=== PATIENT | male | born 1995 | race Caucasian/White ===

== ENCOUNTER 2018-02-07 07:17 | Observation (INO) | payer OTHER ==
[~2018-02-07] VITALS: Ht 172.7 cm; Wt 99.8 kg
[2018-02-07 08:01] LABS: ABSOLUTE BASOPHIL COUNT 0 /CUMM (0.0-0.2); ABSOLUTE EOSINOPHIL COUNT 0.3 /CUMM (0.0-0.7); ABSOLUTE GRANULOCYTE CT 9.4 /CUMM (1.4-6.5); ABSOLUTE LYMPH COUNT 1.8 /CUMM (1.2-3.4); ABSOLUTE MONOCYTE COUNT 0.8 /CUMM (0.10-0.60); BASOPHIL % 0.2 % (0.0-2.0); EOSINOPHIL % 2.2 % (0-5); GRANULOCYTE % 76.7 % (42.2-75.2); MEAN CORPUSCULAR HGB 29.3 PG (27.0-31.0); MEAN CORPUSCULAR HGB CONC 33.6 G/DL (33.0-37.0); MEAN CORPUSCULAR VOLUME 87.2 FL (80.0-94.0); MEAN PLATELET VOLUME 8.4 FL (7.4-10.4); PLATELET COUNT 293 /CUMM (130-400); RBC DISTRIBUTION WIDTH 12.8 % (11.5-14.5); RED BLOOD CELL CT 6.14 /CUMM (4.70-6.10); WHITE BLOOD CELL COUNT 12.3 /CUMM (4.8-10.8)
[2018-02-07 08:10] LABS: HEMATOCRIT 53.5 % (42-52)
--- NOTE | 2018-02-07 08:34 | ED GI/GU/ABDOMINAL COMPLAINT ---
History of Present Illness General Chief Complaint: Abdominal Pain/Flank Pain Stated Complaint: ABD PAIN Source: patient Exam Limitations: no limitations Vital Signs & Intake/Output Vital Signs & Intake/Output Vital Signs Date Time Temp Pulse Resp B/P B/P Pulse O2 O2 Flow FiO2 Mean Ox Delivery Rate 02/07 1221 98.8 88 20 136/86 96 Room Air 02/07 1041 98.7 80 18 110/70 96 Room Air 02/07 0934 98.9 90 20 122/70 96 Room Air 02/07 0732 98.3 108 18 137/83 99 Room Air Allergies Coded Allergies: No Known Allergies (02/07/18) Reconcile Medications No Known Home Medications Triage Note: 22M WITH RIGHT SIDED ABDOMINAL PAIN SINCE SUNDAY NIGHT. WENT TO WALK IN YESTERDAY AND HAD U/S OF GALLBLADDER AND APPENDIX WHICH DID NOT SHOW ANY ACUTE FINDINGS. REPORTS SUBJECTIVE FEVER LAST NIGHT. LAST BM THIS THIS MORNING AND NORMAL. ALSO STATES THERE WAS BLOOD FOUND IN HIS URINE, DENIES CLARIBEL HEMATURIA AT HOME. REPORTS MILD GENERALIZED AND BACK PAIN TO AFFECTED SIDE. AFEBRILE IN TRIAGE. PAIN 3/10 AND INTERMITTENTLY EXACERBATED. DENIES N/V/D OR CP/SOB Triage Nurses Notes Reviewed? yes Onset: Abrupt Duration: day(s): (4), better, changing over time, continues in ED Timing: single episode today Quality/Severity: cramping Severity Numbers: 3 Location: right flank, right lower quadrant Radiation: back Activities at Onset: none Prior Abdominal Problems: none Past Sexual History: Unobtainable at this time No Modifying Factors: none Modifying Factors: Worsens With: palpation. Associated Symptoms: abdominal pain HPI: 22-year-old male history of asthma since evaluation of abdominal pain. Patient states that this started 4 days ago and has improved since restarting. The pain is located in the right lower quadrant and right flank and radiates into the right back. The pain is worse with palpation. He's never had this pain before. He went to an urgent care and had a normal gallbladder ultrasound and was told that he had hematuria. He is unsure if his kidneys are ultrasound. He has no history of kidney stones denies any urinary symptoms. No nausea or vomiting but does report decreased appetite. He also had a subjective fever last night for chest Tylenol for. No abdominal surgeries never had this before. He reports the pain has improved since restarting currently is a 3 out of 10 but intermittently worse. (Sravan Christopher) Past History Travel History Traveled to [place] past 21 day No Medical History Any Pertinent Medical History? see below for history Respiratory: asthma Surgical History Surgical History: none Psychosocial History What is your primary language [place] Tobacco Use: Never used Family History Hx Contributory? No (Sravan Christopher) Review of Systems Review of Systems Constitutional: Reports: no symptoms. EENTM: Reports: no symptoms. Respiratory: Reports: no symptoms. Cardiovascular: Reports: no symptoms. GI: Reports: see HPI, abdominal pain. Genitourinary: Reports: no symptoms. Musculoskeletal: Reports: no symptoms. Skin: Reports: no symptoms. Neurological/Psychological: Reports: no symptoms. Hematologic/Endocrine: Reports: no symptoms. Immunologic/Allergic: Reports: no symptoms. All Other Systems: Reviewed and Negative (Sravan Christopher) Physical Exam Physical Exam General Appearance: well developed/nourished, no apparent distress, alert, awake Head: atraumatic, normal appearance Eyes: Bilateral: normal appearance, PERRL, EOMI. Ears, Nose, Throat, Mouth: hearing grossly normal, moist mucous membrane Neck: normal inspection, supple, full range of motion Respiratory: normal breath sounds, chest non-tender, no respiratory distress, lungs clear Cardiovascular: regular rate/rhythm, normal peripheral pulses Peripheral Pulses: 2+ radial (R), 2+ radial (L) Gastrointestinal: normal bowel sounds, soft, no organomegaly, tenderness (RLQ, RT FLANK ) Back: normal inspection, normal range of motion, RIGHT-SIDED LUMBAR PARASPINAL MUSCLE TENDERNESS TO PALPATION NO MIDLINE TENDERNESS TO BREATHING SWELLING OR ABRASIONS NO cva TENDERNESS Extremities: normal range of motion Neurologic/Psych: no motor/sensory deficits, awake, alert, oriented x 3, normal gait Skin: intact, normal color, warm/dry Core Measures ACS in differential dx? No Sepsis Present: No Sepsis Focused Exam Completed? No (Sravan Christopher) Progress Differential Diagnosis: appendicitis, biliary colic, cholecystitis, diverticulitis, hepatitis, inflamm bowel dis, pancreatitis, pyelonephritis, ureterolithiasis, UTI/pyelo Plan of Care: Orders Procedure Date/time Status CBC WITHOUT DIFFERENTIAL 02/08 0600 Active Nothing by Mouth 02/07 D Active Admit to inpatient 02/07 1234 Active Pathway - chart 02/07 1226 Active Patient Data 02/07 1226 Active Vital Signs 02/07 1226 Active Intake & Output 02/07 1226 Active Activity/Ambulation 02/07 1226 Active LIPASE 02/07 1226 Active BASIC ELECTROLYTES PLUS BUN&CR 02/07 1226 Active Code Status 02/07 1226 Active URINALYSIS 02/07 0725 Complete LIPASE 02/07 0725 Complete COMPREHENSIVE METABOLIC PANEL 02/07 07 Complete CBC WITHOUT DIFFERENTIAL 02/07 07 Complete AMYLASE 02/07 07 Complete VTE Mechanical Prophylaxis 02/07 UNK Active Current Medications Sig/Ozzy Start time Last Medication Dose Stop Time Status Admin Metronidazole 500 MG IQ8 02/07 1600 UNVr (Flagyl) N/A 1 UNIT (No Carrier) Heparin Sodium 5,000 UNIT Q8 02/07 1400 UNVr (Porcine) Acetaminophen 1,000 MG Q6P PRN 02/07 1230 UNVr (Ofirmev) N/A 1 UNIT (No Carrier) Dextrose/Sodium 1,000 ML Q10H 02/07 1230 UNVr Chloride (D5W-1/2 Normal Saline 1000ML) Morphine Sulfate 2 MG Q4P PRN 02/07 1230 UNVr (Morphine) Morphine Sulfate 4 MG Q4P PRN 02/07 1230 UNVr (Morphine) Ondansetron HCl 4 MG Q6P PRN 02/07 1230 UNVr (Zofran) Laboratory Tests 02/07/18 0735: Urinalysis LIGHT H, Urine Color YEL, Urine Clarity HAZY H, Urine pH 6.0, Ur Specific [place] >= 1.030, Urine Protein TRACE H, Urine Ketones 15 H, Urine Nitrite NEG, Urine Bilirubin NEG@ICTO, Urine Urobilinogen 2.0 H, Ur Leukocyte Esterase NEG, Ur Microscopic SEDIMENT EXAMINED, Urine RBC RARE, Urine Bacteria RARE H, Urine Mucus MOD H, Urine Hemoglobin NEG, Urine Glucose NEG 02/07/18 0732: Anion Gap 15, Estimated GFR > 60, BUN/Creatinine Ratio 10.8, Glucose 101 H, Calcium 10.0, Total Bilirubin 1.4 H, AST 21, ALT 26, Alkaline Phosphatase 76, Total Protein 7.8, Albumin 4.3, Globulin 3.5, Albumin/Globulin Ratio 1.2, Amylase 49, Lipase 41, CBC w Diff NO MAN DIFF REQ, RBC 6.14 H, MCV 87.2, MCH 29.3, MCHC 33.6, RDW 12.8, MPV 8.4, Gran % 76.7 H, Lymphocytes % 14.5 L, Monocytes % 6.4, Eosinophils % 2.2, Basophils % 0.2, Absolute Granulocytes 9.4 H, Absolute Lymphocytes 1.8, Absolute Monocytes 0.8 H, Absolute Eosinophils 0.3 , Absolute Basophils 0 Patient seen and evaluated. He is here with abdominal pain in his right lower quadrant and right flank. The pain is been present for the past 4 days. Patient does feel like it's gotten better since first starting. He was seen in urgent care and told that he has hematuria he had an ultrasound of his gallbladder that was negative. Labs and CT scan ordered IV fluids Toradol ordered. Blood work shows a mildly elevated with blood cell count of 12.3. Remaining labs do not show any acute findings. CT scan shows evidence of colitis in the area of the cecum. There is also free air which may be related to perforation versus a gas-forming organism. The appendix does not appear inflamed according to the radiologist. Patient is feeling better after Toradol. We'll get a surgical consult for further evaluation. PT was seen by surgery who will be admitting the patient for observation. Diagnostic Imaging: Viewed by Me: CT Scan. Discussed w/RAD: CT Scan. Radiology Impression: PATIENT: DARLENE ELLIOTT PRESENT AGE: 22 PATIENT ACCOUNT NO: [id number] : 93 LOCATION: [facility] ORDERING PHYSICIAN: Sravan BAEZ SERVICE DATE: 02/07/18 EXAM TYPE: CAT - CT ABD & PELVIS W/O IV CONTRAS EXAMINATION: CT ABDOMEN AND PELVIS WITHOUT CONTRAST CLINICAL INFORMATION: Right lower quadrant and right flank pain for 4 days. Hematuria. COMPARISON: None TECHNIQUE: Multidetector volumetric imaging was performed from the superior aspect of the liver through the pubic symphysis. Sagittal and coronal reformatted images were obtained on the technologist's workstation. DLP: 613 mGy-cm FINDINGS: LUNG BASES: There is a calcified granuloma in the right middle lobe. Lung bases are otherwise clear. LIVER, GALLBLADDER, AND BILIARY TREE: The liver is normal in size, shape, and attenuation. No focal hepatic lesion or biliary ductal dilatation is present. The gallbladder is unremarkable with no evidence of radiopaque gallstones, gallbladder wall thickening, or obvious pericholecystic inflammatory changes. PANCREAS: Unremarkable. SPLEEN: 2 small splenules are noted at the hilum. ADRENAL GLANDS: Unremarkable. KIDNEYS AND URETERS: The kidneys are normal in size, shape, and attenuation. No hydronephrosis, hydroureter, or calculi seen. No perinephric stranding. BLADDER: Unremarkable. GASTROINTESTINAL TRACT: There is focal inflammatory stranding involving the base of the cecum with infiltration of the adjacent fat and small foci of extraluminal gas without defined fluid collection. The terminal ileum appears normal. The appendix appears normal. The stomach and small bowel appear normal. ABDOMINAL WALL: No significant hernia is appreciated. LYMPH NODES: Normal. VASCULAR: Unremarkable. PELVIC VISCERA: Unremarkable. OSSEOUS STRUCTURES: Unremarkable. IMPRESSION: - Focal inflammatory stranding involving the base of the cecum with infiltration of the adjacent fat and small foci of extraluminal gas without defined fluid collection. The findings are concerning for an acute colitis reminiscent of a diverticulitis (although diverticula are not seen). Epiploic appendagitis is an additional consideration however the foci of extraluminal gas would be atypical for this disease process. The appendix is normal. - No nephrolithiasis. This critical result was discussed with Sravan Bolton on 02/07/2018 10:51 AM, and it was ascertained that the content and urgency of the report was understood at the time of direct communication. DICTATED BY: Valdez Emmanuel MD DATE/TIME DICTATED :02/07/181027 PUBLIC HEALTH DIRECTOR:ARIEL DATE/TIME TRANSCRIBED:02/07/181027 CONFIDENTIAL, DO NOT COPY WITHOUT APPROPRIATE AUTHORIZATION. < Electronically signed in Other Vendor System> SIGNED BY: Valdez Emmanuel MD 02/07/18 1054 Initial ED EKG: none (Sravan Christopher) Departure Departure Disposition: STILL A PATIENT Condition: Stable Clinical Impression Primary Impression: Colitis Referrals: Unknown (PCP/Family) Departure Forms: Customer Survey General Discharge Information Prescriptions: Current Visit Scripts No Known Home Medications Observation Note Spoke With: Mabel RANDALL,Kristofer James Physician Advisor Notified: CAMI RANDALL,MALENA Durant Place Patient In: Non-ED OBS Care Area Rationale for Observation: My rational for observation is as follows [serial labs serial abdominal exams IV fluids IV pain meds IV antibiotic surgical consult]. (Sravan Christopher) PA/UI ENGINEER Co-Sign Statement Statement: ED Attending supervision documentation- [x] I saw and evaluated the patient. I have also reviewed all the pertinent lab results and diagnostic results. I agree with the findings and the plan of care as documented in the PA's/UI ENGINEER's documentation. [] I have reviewed the ED Record and agree with the PA's/UI ENGINEER's documentation. [] Additions or exceptions (if any) to the PAs/UI ENGINEER's note and plan are summarized below: [] (Carmen RANDALL,Elliott Zuirta)
--- NOTE | 2018-02-07 10:54 | CT SCAN REPORT ---
EXAMINATION: CT ABDOMEN AND PELVIS WITHOUT CONTRAST CLINICAL INFORMATION: Right lower quadrant and right flank pain for 4 days. Hematuria. COMPARISON: None TECHNIQUE: Multidetector volumetric imaging was performed from the superior aspect of the liver through the pubic symphysis. Sagittal and coronal reformatted images were obtained on the technologist's workstation. DLP: 613 mGy-cm FINDINGS: LUNG BASES: There is a calcified granuloma in the right middle lobe. Lung bases are otherwise clear. LIVER, GALLBLADDER, AND BILIARY TREE: The liver is normal in size, shape, and attenuation. No focal hepatic lesion or biliary ductal dilatation is present. The gallbladder is unremarkable with no evidence of radiopaque gallstones, gallbladder wall thickening, or obvious pericholecystic inflammatory changes. PANCREAS: Unremarkable. SPLEEN: 2 small splenules are noted at the hilum. ADRENAL GLANDS: Unremarkable. KIDNEYS AND URETERS: The kidneys are normal in size, shape, and attenuation. No hydronephrosis, hydroureter, or calculi seen. No perinephric stranding. BLADDER: Unremarkable. GASTROINTESTINAL TRACT: There is focal inflammatory stranding involving the base of the cecum with infiltration of the adjacent fat and small foci of extraluminal gas without defined fluid collection. The terminal ileum appears normal. The appendix appears normal. The stomach and small bowel appear normal. ABDOMINAL WALL: No significant hernia is appreciated. LYMPH NODES: Normal. VASCULAR: Unremarkable. PELVIC VISCERA: Unremarkable. OSSEOUS STRUCTURES: Unremarkable. IMPRESSION: - Focal inflammatory stranding involving the base of the cecum with infiltration of the adjacent fat and small foci of extraluminal gas without defined fluid collection. The findings are concerning for an acute colitis reminiscent of a diverticulitis (although diverticula are not seen). Epiploic appendagitis is an additional consideration however the foci of extraluminal gas would be atypical for this disease process. The appendix is normal. - No nephrolithiasis. This critical result was discussed with Sravan Bolton on 02/07/2018 10:51 AM, and it was ascertained that the content and urgency of the report was understood at the time of direct communication.
[2018-02-07 14:08] VITALS: BP 102/60
[2018-02-07 18:00] VITALS: BP 124/80
--- NOTE | 2018-02-07 19:23 | History & Physical Pre-Op ---
General Information and HPI History of Present Illness: CC: abdominal pain HPI: 22-year-old otherwise healthy nonsmoker nondiabetic no history of bowel issues, had some sharp right lower quadrant pain a few days ago which has subsided but not resolved so he came to the ER with his family otherwise no fevers no changes in bowel habits weight or appetite no recent flulike symptoms the pain initially was worse on movement didn't radiate no dysuria no bleeding per rectum now it's only when pressed. He also denies any recent straining or unusual meals just prior, in particular doesn't recall chicken or fish bones. Incidentally his father says he had a similar scenario and he was taken to the operating room presumptively for appendicitis but instead they found a perforation near there from a chicken bone. I've reviewed the [facility]. No history of GERD, PUD, bleeding problems, heart disease or issues with anesthesia. Family neck family history negative for diabetes or cancer or intestinal disease Allergies/Medications Allergies: Coded Allergies: No Known Allergies (02/07/18) Home Med list No Known Home Medications Past History Medical History Blood Transfusion Hx: No Neurological: NONE EENT: NONE Cardiovascular: NONE Respiratory: asthma Gastrointestinal: NONE Hepatic: NONE Renal: NONE Musculoskeletal: NONE Psychiatric: NONE Endocrine: NONE Blood Disorders: NONE Cancer(s): NONE BIT SHARPENER/Reproductive: NONE Isolation History: Standard Surgical History Pertinent Surgical History: none Past Family/Social History Psychosocial History Smoking Status: Never Smoked Review of Systems Review of Systems: Constitutional: No fever, sweats or weight loss ENMT: No sore throat Cardiovascular: No chest pain, palpitations or leg swelling Respiratory: No shortness of breath, cough, or sputum or dyspnea on exertion GI: No GERD or bleeding per rectum : No dysuria or hematuria Musculoskeletal: No new muscle weakness, bone or joint pain Skin / Breast: No jaundice, rashes or itching Psychiatric: No history of drug or alcohol abuse no depression or anxiety Hematologic / lymphatic system: No problems with excessive bleeding, bruising, or blood clots Exam & Diagnostic Data Last 24 Hrs of Vital Signs/I&O I reviewed Vital Signs Date Time Temp Pulse Resp B/P B/P Pulse O2 O2 Flow FiO2 Mean Ox Delivery Rate 02/07 1800 98.5 80 16 124/80 95 Room Air 02/07 1408 98.1 101 18 102/60 95 Room Air 02/07 1331 98.4 80 18 124/72 87 Room Air Room Air 02/07 1221 98.8 88 20 136/86 96 Room Air 02/07 1041 98.7 80 18 110/70 96 Room Air 02/07 0934 98.9 90 20 122/70 96 Room Air 02/07 0732 98.3 108 18 137/83 99 Room Air I reviewed Intake & Output 02/07 1600 02/07 0800 02/07 0000 Intake Total Output Total Balance Patient 220 lb 220 lb Weight Physical Exam: Constitutional: pleasant, no acute distress, conversant Eyes: sclera anicteric ENMT: ears and nose atraumatic, moist mucous membranes, good dentition, no lip lesions Neck: Supple, trachea is midline, no cervical or supraclavicular adenopathy and no palpable thyromegaly Cardiovascular: S1, S2, no murmurs, no peripheral edema Respiratory: clear to auscultation with normal respiratory effort and no intercostal retractions GI: abdomen soft, mild right lower quadrant more lateral to the umbilicus discomfort no rebound or guarding, nondistended, no palpable hepatosplenomegaly Extremities / lymphatics: symmetrically warm, free range of motion no peripheral edema, no cervical, supraclavicular, axillary, or inguinal adenopathy Musculoskeletal: Did not evaluate gait and station, no digital cyanosis, good muscle strength and tone no atrophy, motor grossly 5 out of 5 throughout Skin: no jaundice, no rashes warm, nondiaphoretic, no areas of erythema or induration Psychiatric: mood and affect are appropriate and alert and oriented to person place and time Last 24 Hrs of Labs/Khoa: I reviewed Laboratory Tests 02/07/18 1246: Anion Gap 12, Estimated GFR > 60, BUN/Creatinine Ratio 12.7, Lipase 41 02/07/18 0735: Urinalysis LIGHT H, Urine Color YEL, Urine Clarity HAZY H, Urine pH 6.0, Ur Specific [place] >= 1.030, Urine Protein TRACE H, Urine Ketones 15 H, Urine Nitrite NEG, Urine Bilirubin NEG@ICTO, Urine Urobilinogen 2.0 H, Ur Leukocyte Esterase NEG, Ur Microscopic SEDIMENT EXAMINED, Urine RBC RARE, Urine Bacteria RARE H, Urine Mucus MOD H, Urine Hemoglobin NEG, Urine Glucose NEG 02/07/18 0732: Anion Gap 15, Estimated GFR > 60, BUN/Creatinine Ratio 10.8, Glucose 101 H, Calcium 10.0, Total Bilirubin 1.4 H, AST 21, ALT 26, Alkaline Phosphatase 76, Total Protein 7.8, Albumin 4.3, Globulin 3.5, Albumin/Globulin Ratio 1.2, Amylase 49, Lipase 41, CBC w Diff NO MAN DIFF REQ, RBC 6.14 H, MCV 87.2, MCH 29.3, MCHC 33.6, RDW 12.8, MPV 8.4, Gran % 76.7 H, Lymphocytes % 14.5 L, Monocytes % 6.4, Eosinophils % 2.2, Basophils % 0.2, Absolute Granulocytes 9.4 H, Absolute Lymphocytes 1.8, Absolute Monocytes 0.8 H, Absolute Eosinophils 0.3 , Absolute Basophils 0 Assessment/Plan Assessment/Plan: Studies I reviewed today's CT scan on PACS myself no comparison appendix looks normal medial to the cecum is some mesenteric stranding and a couple of tiny dots of gas no free fluid no bowel obstruction. Impression is right sided abdominal pain that correlates with the CT findings suggestive of a microperforation and inflammation it's a little unusual at this age his father's story is really amazing but there is no obvious foreign body on the imaging, just something to keep in mind. Otherwise the most likely reason is diverticulitis, the few bubbles of gas did track medially, even though he appears well not acutely ill I feel we should admit him observe and repeat labs see if his pain improves or worsens watch for fever consider reimaging if IV antibiotics. If this worsens it could cause peritonitis and required emergency surgery. As Ranked By This Provider Problem List: 1. Perforation and abscess of large intestine concurrent with and due to diverticulitis
[2018-02-07 21:11] VITALS: BP 110/80
[2018-02-08 06:57] VITALS: BP 114/74
[2018-02-08 08:14] LABS: ABSOLUTE BASOPHIL COUNT 0 /CUMM (0.0-0.2); ABSOLUTE EOSINOPHIL COUNT 0.4 /CUMM (0.0-0.7); ABSOLUTE LYMPH COUNT 1.7 /CUMM (1.2-3.4); ABSOLUTE MONOCYTE COUNT 0.5 /CUMM (0.10-0.60); PLATELET COUNT 261 /CUMM (130-400)
[2018-02-08 08:58] LABS: ABSOLUTE GRANULOCYTE CT 5.9 /CUMM (1.4-6.5); BASOPHIL % 0.5 % (0.0-2.0); EOSINOPHIL % 4.2 % (0-5); GRANULOCYTE % 69.2 % (42.2-75.2); MEAN CORPUSCULAR HGB 29.3 PG (27.0-31.0); MEAN CORPUSCULAR HGB CONC 33.6 G/DL (33.0-37.0); MEAN CORPUSCULAR VOLUME 87.2 FL (80.0-94.0); MEAN PLATELET VOLUME 8.5 FL (7.4-10.4); RBC DISTRIBUTION WIDTH 12.4 % (11.5-14.5); RED BLOOD CELL CT 5.08 /CUMM (4.70-6.10); WHITE BLOOD CELL COUNT 8.6 /CUMM (4.8-10.8)
[2018-02-08 09:15] LABS: HEMATOCRIT 44.3 % (42-52)
--- NOTE | 2018-02-08 10:05 | PN- General Surgery ---
See Addendum Subjective Subjective: Reports improved abdominal discomfort, mostly right lower side. Denies nausea/ vomiting. Reports +bm yesterday. Voiding without difficulty. Minor sweats overnight, but no fevers/chills. Denies history of this pain, and no past surgical history. Objective Vital Signs and I&Os Vital Signs Date Time Temp Pulse Resp B/P B/P Pulse O2 O2 Flow FiO2 Mean Ox Delivery Rate 02/08 0657 98.3 73 18 114/74 98 02/07 2111 98.8 87 16 110/80 97 Room Air 02/07 1800 98.5 80 16 124/80 95 Room Air 02/07 1408 98.1 101 18 102/60 95 Room Air 02/07 1331 98.4 80 18 124/72 87 Room Air Room Air 02/07 1221 98.8 88 20 136/86 96 Room Air 02/07 1041 98.7 80 18 110/70 96 Room Air Intake & Output 02/08 1600 02/08 0800 02/08 0000 02/07 1600 02/07 0800 02/07 0000 Intake Total 900 720 Output Total 400 Balance 900 320 Intake, IV 900 720 Intake, Oral 0 Number 0 Bowel Movements Output, Urine 400 Patient 220 lb 220 lb Weight Physical Exam: General - alert & oriented x 3. comfortable. no acute distress. Lungs - clear bilaterally. no w/r/r. Cardiac - s1s2. reg. Abdomen - soft. minor right lower abdominal tenderness. bowel sounds appreciated. Extremities - warm bilaterally. no c/c/e. calves soft and nontender b/l. Current Medications: Current Medications Sig/Ozzy Start time Last Medication Dose Route Stop Time Status Admin Acetaminophen 1,000 MG Q6P PRN 02/07 1230 AC 02/07 N/A 1 UNIT IV 2144 Ciprofloxacin 400 MG Q12 02/07 2100 AC 02/08 Dextrose/Water 200 ML IV 0945 Dextrose/Sodium 1,000 ML Q10H 02/07 1230 AC 02/08 [place] 0847 Heparin Sodium 5,000 UNIT Q8 02/07 1400 AC 02/08 (Porcine) SC 0509 Metronidazole 500 MG IQ8 02/07 1600 AC 02/08 N/A 1 UNIT IV 0837 Morphine Sulfate 2 MG Q4P PRN 02/07 1230 AC IV Morphine Sulfate 4 MG Q4P PRN 02/07 1230 AC IV Ondansetron HCl 4 MG Q6P PRN 02/07 1230 AC IV Results Last 48 Hours of Labs: Laboratory Tests 02/08 02/07 0620 1246 Chemistry Sodium (137 - 145 mmol/L) 144 Potassium (3.5 - 5.1 mmol/L) 4.2 Chloride (98 - 107 mmol/L) 108 H Carbon Dioxide (22 - 30 mmol/L) 24 Anion Gap (5 - 16) 12 BUN (9 - 20 mg/dL) 14 Creatinine (0.7 - 1.2 mg/dL) 1.1 Estimated GFR (>60 ml/min) > 60 BUN/Creatinine Ratio (7 - 25 %) 12.7 Lipase (23 - 300 U/L) 41 Hematology CBC w Diff NO MAN DIFF REQ WBC (4.8 - 10.8 /CUMM) 8.6 RBC (4.70 - 6.10 /CUMM) 5.08 Hgb (14.0 - 18.0 G/DL) 14.9 Hct (42 - 52 %) 44.3 MCV (80.0 - 94.0 FL) 87.2 MCH (27.0 - 31.0 PG) 29.3 MCHC (33.0 - 37.0 G/DL) 33.6 RDW (11.5 - 14.5 %) 12.4 Plt Count (130 - 400 /CUMM) 261 MPV (7.4 - 10.4 FL) 8.5 Gran % (42.2 - 75.2 %) 69.2 Lymphocytes % (20.5 - 51.1 %) 20.3 L Monocytes % (1.7 - 9.3 %) 5.8 Eosinophils % (0 - 5 %) 4.2 Basophils % (0.0 - 2.0 %) 0.5 Absolute Granulocytes (1.4 - 6.5 /CUMM) 5.9 Absolute Lymphocytes (1.2 - 3.4 /CUMM) 1.7 Absolute Monocytes (0.10 - 0.60 /CUMM) 0.5 Absolute Eosinophils (0.0 - 0.7 /CUMM) 0.4 Absolute Basophils (0.0 - 0.2 /CUMM) 0 02/07 02/07 0708 0702 Chemistry Sodium (137 - 145 mmol/L) 145 Potassium (3.5 - 5.1 mmol/L) 4.3 Chloride (98 - 107 mmol/L) 105 Carbon Dioxide (22 - 30 mmol/L) 25 Anion Gap (5 - 16) 15 BUN (9 - 20 mg/dL) 13 Creatinine (0.7 - 1.2 mg/dL) 1.2 Estimated GFR (>60 ml/min) > 60 BUN/Creatinine Ratio (7 - 25 %) 10.8 Glucose (65 - 99 mg/dL) 101 H Calcium (8.4 - 10.2 mg/dL) 10.0 Total Bilirubin (0.2 - 1.3 mg/dL) 1.4 H AST (17 - 59 U/L) 21 ALT (21 - 72 U/L) 26 Alkaline Phosphatase (< 127 U/L) 76 Total Protein (6.3 - 8.2 g/dL) 7.8 Albumin (3.5 - 5.0 g/dL) 4.3 Globulin (1.9 - 4.2 gm/dL) 3.5 Albumin/Globulin Ratio (1.1 - 2.2 %) 1.2 Amylase (30 - 110 U/L) 49 Lipase (23 - 300 U/L) 41 Hematology CBC w Diff NO MAN DIFF REQ WBC (4.8 - 10.8 /CUMM) 12.3 H RBC (4.70 - 6.10 /CUMM) 6.14 H Hgb (14.0 - 18.0 G/DL) 18.0 Hct (42 - 52 %) 53.5 H MCV (80.0 - 94.0 FL) 87.2 MCH (27.0 - 31.0 PG) 29.3 MCHC (33.0 - 37.0 G/DL) 33.6 RDW (11.5 - 14.5 %) 12.8 Plt Count (130 - 400 /CUMM) 293 MPV (7.4 - 10.4 FL) 8.4 Gran % (42.2 - 75.2 %) 76.7 H Lymphocytes % (20.5 - 51.1 %) 14.5 L Monocytes % (1.7 - 9.3 %) 6.4 Eosinophils % (0 - 5 %) 2.2 Basophils % (0.0 - 2.0 %) 0.2 Absolute Granulocytes (1.4 - 6.5 /CUMM) 9.4 H Absolute Lymphocytes (1.2 - 3.4 /CUMM) 1.8 Absolute Monocytes (0.10 - 0.60 /CUMM) 0.8 H Absolute Eosinophils (0.0 - 0.7 /CUMM) 0.3 Absolute Basophils (0.0 - 0.2 /CUMM) 0 Urines Urinalysis LIGHT H Urine Color (YEL,AMB,STR) YEL Urine Clarity (CLEAR) HAZY H Urine pH (5.0 - 8.0) 6.0 Ur Specific [place] (1.001 - 1.035) >= 1.030 Urine Protein (NEG,<30 MG/DL) TRACE H Urine Ketones (NEG) 15 H Urine Nitrite (NEG) NEG Urine Bilirubin (NEG) NEG@ICTO Urine Urobilinogen (0.1 - 1.0 EU/dl) 2.0 H Ur Leukocyte Esterase (NEG) NEG Ur Microscopic SEDIMENT EXAMINED Urine RBC (0 - 5 /HPF) RARE Urine Bacteria (NEG/NONE) RARE H Urine Mucus (FEW,NONE) MOD H Urine Hemoglobin (NEG) NEG Urine Glucose (N MG/DL) NEG Assessment/Plan Assessment/Plan This 22 year old male with imaging findings are concerning for an acute colitis reminiscent of a diverticulitis (although diverticula are not seen) vs epiploic appendagitis (however the foci of extraluminal gas is atypical for this), with normal appearing appendix currently npo / ivf mild leukocytosis normalized this morning continue iv cipro / flagyl hep sc - dvt ppx oob/ambulation may consider clears today placed in observation status given likelihood of diet advancement and possible discharge in the next 24 hours will d/w Core Measures Venous Thromboembolism VTE Risk Factors Obesity No Mechanical VTE Prophylaxis d/t N/A MechProphylax Ordered No VTE Pharm Prophylaxis d/t NA PharmProphylax ordered
--- NOTE | 2018-02-08 10:14 | Patient Discharge Instructions ---
Discharge Instructions General Discharge Information You were seen/treated for: cecal diverticulitis You had these procedures: bowel rest, antibiotics Watch for these problems: fever>101.3, increased pain, nausea/vomiting Diet Continue normal diet: No Recommended Diet: Low Residue Activity Full Activity/No Limits: Yes Activity Self Limited: Yes Acute Coronary Syndrome Inclusion Criteria At DC or during hospital stay patient has or had the following: ACS DIAGNOSIS No Discharge Core Measures Meds if any: Prescribed or Continued at Discharge Meds if any: NOT Prescribed or Continued at Discharge Congestive Heart Failure Inclusion Criteria At DC or during hospital stay patient has or had the following: CHF DIAGNOSIS No Discharge Core Measures Meds if any: Prescribed or Continued at Discharge Meds if any: NOT Prescribed or Continued at Discharge Cerebrovascular accident Inclusion Criteria At DC or during hospital stay patient has or had the following: CVA/TIA Diagnosis No Discharge Core Measures Meds if any: Prescribed or Continued at Discharge Meds if any: NOT Prescribed or Continued at Discharge Venous thromboembolism Inclusion Criteria VTE Diagnosis No VTE Type NONE VTE Confirmed by (Test) NONE Discharge Core Measures - Per Current guidelines, there needs to be overlap - treatment for the first 5 days of Warfarin therapy. - If discharged on Warfarin prior to 5 days of - overlap therapy, the patient will need to be - assessed for post discharge needs including - *Post discharge parental anticoagulation - *Warfarin and/or parental anticoagulation education - *Follow up date to check INR post discharge At least 5 days overlap therapy as Inpatient No Meds if any: Prescribed or Continued at Discharge Note: Overlap Therapy is Warfarin and Anticoagulant Meds if any: NOT Prescribed or Continued at Discharge
[2018-02-08 14:14] VITALS: BP 120/76
[2018-02-08] MEDS ORDERED: AUGMENTIN 875-1 EACH PO (16:34)
--- NOTE | 2018-02-08 17:56 | Discharge Summary ---
Visit Information Visit Dates Admission Date: 02/07/18 Discharge Date: 02/08/18 Hospital Course Course Attending Physician: Kristofer Monroe MD Primary Care Physician: Unknown Hospital Course: Patient came to the ER yesterday with abdominal pain and was located in the right lower quadrant where on CT there was a small contained perforation with some surrounding stranding but no abscess larger than 2 cm no air-fluid level. Despite this he was relatively stable no signs of sepsis he had some leukocytosis but no fever no peritoneal signs also this process wasn't obviously appendicitis or diverticulitis that we could tell by the imaging that we brought him in because of the gas and treated him as if right sided diverticulitis that being bowel rest IV antibiotics serial exams this morning his right-sided discomfort improved white blood cell count became normal. Remained afebrile no nausea no sweats placed on a clear liquid diet he had a bowel movement. As him to solid food which she tolerated without increase in pain, and we decided to discharge him home to continue treatment as an outpatient with oral antibiotics. At this point no signs of bleeding obstruction or worsening infection. We discussed him returning if symptoms recur or worsen especially fevers. Allergies: Coded Allergies: No Known Allergies (02/07/18) Disposition Summary Disposition Principal Diagnosis: Right-sided diverticulitis Additional Diagnosis: None acute Discharge Disposition: home or self care Discharge Instructions General Discharge Information Code Status: Full Code Patient's Diet: Resume usual Patient's Activity: No heavy lifting or other straining Follow-Up Instructions/Appts: Next week in the office eventually we'll need to repeat the imaging to make sure the process resolves Medications at Discharge Discharge Medications: Start taking the following new medications: Amoxicillin/Potassium Clav (Augmentin 875-125 Tablet) 875 MG-125 MG TABLET 1 Tablet ORAL TWICE DAILY Qty = 14 No Refills Copies To: Kristofer Monroe MD
== END 2018-02-08 17:32 ==
LOC: ERH 07:17 → ERHI 12:34 → ERH 12:34 → ENRESERV 13:13 → 2NB 13:31 → ENTRNSPT 13:31 → 2NB 13:39 → ERHI 13:39 → EDTRNSPTSTS 13:47 → EDTRNSPT 13:47 → ERHI 14:00 → 2NB 14:02 → CMPTRNSPT 14:09 → 2NB 02-08 17:32
PROVIDERS: Emergency Medicine; Physician Assistant
DX: K57.92 Diverticulitis of intestine, part unspecified, without perforation or abscess without bleeding (principal); D72.829 Elevated white blood cell count, unspecified; J45.909 Unspecified asthma, uncomplicated
CPT/HCPCS: 36592; 74176; 81001; 82436; 96372; 96374; 96375; 96376; G0378; J0131; J0744; J1644; J1885; J2405; J7042; J7060